=== PATIENT | female | born 1985 | race Hispanic/Latino ===

== ENCOUNTER 2022-12-15 05:30 | Inpatient (IN) | payer MEDICAID, SELFPAY ==
[2022-12-15] MEDS ORDERED: Carboprost 250 MCG/ML AMP IM PRN (17:48)
[2022-12-15] MEDS ORDERED: Lidocaine 1% (PF) 30 ML VIAL SC PRN (17:48)
[2022-12-15] MEDS ORDERED: Ondansetron PF 4 MG/2 ML Vial IVP PRN (17:48)
[2022-12-15] MEDS ORDERED: hydrALAZINE 20 MG/ML VIAL SLOW IVP PRN (17:48)
[2022-12-15] MEDS ORDERED: Methylergonovine 0.2 MG/ML VIAL IM PRN (17:48)
[2022-12-15] MEDS ORDERED: Misoprostol 200 MCG TAB PR PRN (17:48)
[2022-12-15] MEDS ORDERED: Diphenoxylate HCl/Atropine Tablet PO PRN (17:48)
[2022-12-15] MEDS ORDERED: Promethazine HCl 25 MG/ML VIAL IM PRN (17:48)
[2022-12-15] MEDS ORDERED: Tranexamic Acid 1,000 MG/10 ML VIAL IVP PRN (17:48)
[2022-12-15] MEDS ORDERED: Acetaminophen 500 MG TAB PO PRN (17:48)
[2022-12-15] MEDS ORDERED: Misoprostol 100 MCG TAB VAG SCH (18:00)
[2022-12-15] MEDS ORDERED: NS w/ Oxytocin 30 units 500 ML IV SCH ×3 (18:00)
[2022-12-15 18:23] LABS: Hemoglobin 10.9 g/dL (12.0-15.5); Mean Corpuscular HGB CONC 33.3 g/dL (32.0-36.0); Mean Corpuscular Hemoglobin 28.5 pg (27.0-33.0); Mean Corpuscular Volume 85.4 fl (81.6-98.3); Mean Platelet Volume 10.8 fl (7.4-10.4); Platelet Count 228 10x3/uL (150-450); RBC Distribution Width 17.6 % (11.5-14.5); Red Blood Cell (RBC) Count 3.83 10x6/uL (3.90-5.03)
[2022-12-15 18:52] LABS: HBSAg Index 0.14 S/CO (0-0.99); Hep B Surf Ag - L&D Non-Reactive S/CO (NonReactive)
[2022-12-15] MEDS ORDERED: Dinoprostone 10 MG Suppository VAG SCH (19:30)
[2022-12-16] MEDS ORDERED: fentaNYL 50 mcg/mL 1 mL Vial SLOW IVP SCH (02:00)
[2022-12-16] MEDS ORDERED: CEFAZOLIN 2 GM VIAL ONE (07:20)
[2022-12-16] MEDS ORDERED: Famotidine/PF 20 mg/2ml Vial ONE (07:20)
[2022-12-16] MEDS ORDERED: fentaNYL 50 mcg/mL 1 mL Vial ONE ×2 (07:32→07:39)
[2022-12-16] MEDS ORDERED: Famotidine/PF 20 mg/2ml Vial SLOW IVP PRN (07:36)
[2022-12-16] MEDS ORDERED: Bicitra 30 ML UDCUP PO PRN (07:36)
[2022-12-16] MEDS ORDERED: Morphine PF 10 MG/10 ML VIAL ONE (07:39)
[2022-12-16] MEDS ORDERED: CEFAZOLIN 2 GM in Sodium Chloride 0.9% 100 ML IVPB SCH (07:45)
[2022-12-16] MEDS ORDERED: Phytonadione Neonatal 1 MG/0.5 ML AMP ONE (08:04)
[2022-12-16] MEDS ORDERED: Erythromycin Base 0.5% Oint 1 GM TUBE ONE (08:04)
[2022-12-16] MEDS ORDERED: Ondansetron PF 4 MG/2 ML Vial ONE (08:52)
[2022-12-16] MEDS ORDERED: Phenylephrine 10 MG/ML VIAL ONE (08:52)
[2022-12-16] MEDS ORDERED: Oxytocin 10 UNITS/ML VIAL ONE (08:52)
[2022-12-16] MEDS ORDERED: Dexamethasone 4 mg/ml Vial ONE (08:52)
[2022-12-16] MEDS ORDERED: Meperidine HCl/PF 25 MG/ML VIAL SLOW IVP PRN (10:02)
[2022-12-16] MEDS ORDERED: diphenhydrAMINE 50 MG/ML VIAL IVP PRN (10:02)
[2022-12-16] MEDS ORDERED: Naloxone HCl 0.4 mg/ml Vial IV PRN (10:02)
[2022-12-16] MEDS ORDERED: Ondansetron HCl/PF 4 MG/2 ML Vial IVP PRN (10:02)
[2022-12-16] MEDS ORDERED: Ketorolac Tromethamine 30 MG/ML VIAL IVP PRN (10:02)
[2022-12-16] MEDS ORDERED: Moisturizing Cream (Eucerin) 113 GM JAR TOP PRN (10:02)
[2022-12-16] MEDS ORDERED: Promethazine HCl 25 MG SUPP PR PRN (10:02)
[2022-12-16] MEDS ORDERED: HYDROmorphone 2 MG/ML VIAL SLOW IVP PRN (10:02)
[2022-12-16] MEDS ORDERED: Promethazine HCl 25 MG/ML VIAL IM PRN (10:02)
[2022-12-16] MEDS ORDERED: Fentanyl 100 MCG/2 ML VIAL SLOW IVP PRN (10:02)
[2022-12-16] MEDS ORDERED: Ondansetron PF 4 MG/2 ML Vial IVP PRN ×2 (10:02→12:11)
[2022-12-16] MEDS ORDERED: Naloxone HCl 0.4 mg/ml Vial IVP PRN ×2 (10:02)
[2022-12-16] MEDS ORDERED: Ketorolac Tromethamine 30 MG/ML VIAL IVP SCH (10:15)
[2022-12-16] MEDS ORDERED: Communication Order-Pharmacy FS PRN (10:15)
[2022-12-16] MEDS: Lactated Ringer's 1,000 ML IV SCH ×2 (11:20→21:33)
[2022-12-16] MEDS ORDERED: Methylergonovine 0.2 MG/ML VIAL IM PRN (11:25)
[2022-12-16] MEDS ORDERED: Misoprostol 200 MCG TAB PR PRN (11:25)
[2022-12-16] MEDS ORDERED: hydrALAZINE 20 MG/ML VIAL SLOW IVP PRN (11:25)
[2022-12-16] MEDS ORDERED: Acetaminophen 325 MG TAB PO PRN (11:25)
[2022-12-16] MEDS ORDERED: NS w/ Oxytocin 30 units 500 ML IV SCH (11:25)
[2022-12-16] MEDS ORDERED: Boostrix 0.5 ML (Tdap) VIAL (>/=7 yrs of age) IM ONE (11:25)
[2022-12-16] MEDS: Ketorolac Tromethamine 30 MG/ML VIAL IVP PRN ×3 (12:47→23:56)
[2022-12-16] MEDS ORDERED: Ibuprofen 800 MG TAB PO SCH (14:00)
[2022-12-16] MEDS: Docusate 100 MG CAP PO SCH (21:33)
[2022-12-16] MEDS: Ferrous Sulfate 325 MG TAB PO SCH (21:34)
[2022-12-17 03:08] LABS: Hemoglobin 8.5 g/dL (12.0-15.5); Mean Corpuscular HGB CONC 33.6 g/dL (32.0-36.0); Mean Corpuscular Hemoglobin 29.1 pg (27.0-33.0); Mean Corpuscular Volume 86.6 fl (81.6-98.3); Mean Platelet Volume 10.5 fl (7.4-10.4); Platelet Count 164 10x3/uL (150-450); RBC Distribution Width 17.7 % (11.5-14.5); Red Blood Cell (RBC) Count 2.92 10x6/uL (3.90-5.03); White Blood Cell (WBC) Count 11.3 10x3/uL (3.5-10.5)
[2022-12-17] MEDS: Ibuprofen 800 MG TAB PO SCH ×3 (05:49→21:36)
[2022-12-17] MEDS ORDERED: HYDROcodone/Acetaminophen 7.5/325 mg Tablet PO SCH (07:30)
[2022-12-17] MEDS: Docusate 100 MG CAP PO SCH ×2 (08:19→19:55)
[2022-12-17] MEDS: Ferrous Sulfate 325 MG TAB PO SCH ×2 (08:19→19:55)
[2022-12-17] MEDS: Prenatal Vitamin 1 TAB PO SCH (08:19)
[2022-12-17] MEDS: Acetaminophen 325 MG TAB PO SCH ×3 (08:58→19:56)
[2022-12-17] MEDS: Lactated Ringer's 1,000 ML IV SCH ×3 (09:03→21:07)
[2022-12-17] MEDS: HYDROcodone/Acetaminophen 7.5/325 mg Tablet PO PRN ×2 (13:20→17:26)
[2022-12-17 13:55] LABS: Syphilis Antibody Nonreactive (Nonreactive); Syphilis Antibody Index 0.03 S/CO (<1.00 Non-Reactive)
[2022-12-18] MEDS: Acetaminophen 325 MG TAB PO SCH (01:05)
[2022-12-18] MEDS: Ibuprofen 800 MG TAB PO SCH ×3 (05:49→21:13)
[2022-12-18] MEDS: Lactated Ringer's 1,000 ML IV SCH (06:27)
[2022-12-18] MEDS: Prenatal Vitamin 1 TAB PO SCH (07:39)
[2022-12-18] MEDS: Ferrous Sulfate 325 MG TAB PO SCH ×2 (07:40→21:14)
[2022-12-18] MEDS: HYDROcodone/Acetaminophen 7.5/325 mg Tablet PO PRN ×5 (07:40→23:51)
[2022-12-18] MEDS: Docusate 100 MG CAP PO SCH ×2 (07:40→21:14)
[2022-12-19] MEDS: Acetaminophen 325 MG TAB PO SCH ×3 (03:53→13:49)
[2022-12-19] MEDS: Lactated Ringer's 1,000 ML IV SCH ×2 (03:54→04:28)
[2022-12-19] MEDS: HYDROcodone/Acetaminophen 7.5/325 mg Tablet PO PRN ×3 (03:57→13:47)
[2022-12-19] MEDS: Ibuprofen 800 MG TAB PO SCH ×2 (05:50→13:47)
[2022-12-19] MEDS: Docusate 100 MG CAP PO SCH (08:04)
[2022-12-19] MEDS: Ferrous Sulfate 325 MG TAB PO SCH (08:05)
[2022-12-19 08:08] VITALS: BP 119/61; TEMP 98
[2022-12-19] MEDS: Prenatal Vitamin 1 TAB PO SCH (08:08)
[2022-12-19] MEDS ORDERED: Simethicone Chewable 80 MG TAB PO PRN (08:46)
== END 2022-12-19 17:15 | disposition home or self-care (01) | DRG 787 ==
LOC: CSHLD 16:33 → CSHPP 12-16 10:47
PROVIDERS: ADMIT Student in an Organized Health Care Education/Training Program; ATTEND Student in an Organized Health Care Education/Training Program
PROC: 3E0P7VZ Introduction of Hormone into Female Reproductive, Via Natural or Artificial Opening (ICD-10-PCS; 2022-12-15)
PROC: 10D00Z1 Extraction of Products of Conception, Low, Open Approach (ICD-10-PCS; principal; 2022-12-16)
DX: O36.8130 Decreased fetal movements, third trimester, not applicable or unspecified (principal); D62 Acute posthemorrhagic anemia; Z3A.39 39 weeks gestation of pregnancy; Z37.0 Single live birth; O76 Abnormality in fetal heart rate and rhythm complicating labor and delivery; O34.13 Maternal care for benign tumor of corpus uteri, third trimester; D25.9 Leiomyoma of uterus, unspecified; O99.03 Anemia complicating the puerperium; Z79.899 Other long term (current) drug therapy; Z79.82 Long term (current) use of aspirin
CPT/HCPCS: 36415; 51702; 85014; 85018; 85027; 86780; 86850; 86900; 86901; 87340; J1100; J1200; J1885; J2274; J2370; J2405; J2590; J3010; J7120; S0028